=== PATIENT | male | born 1995 | race Hispanic/Latino ===

== ENCOUNTER 2021-08-17 16:35 | Emergency (ER) | payer OTHER ==
[~2021-08-17] VITALS: Ht 162.6 cm; Wt 77.6 kg
[2021-08-17] MEDS ORDERED: KETOROLAC 30 MG/ML 1ML VIAL IM ONE (17:25)
[2021-08-17] MEDS ORDERED: CYCLOBENZAPRINE 10MG TABLET PO ONE (17:25)
[2021-08-17] MEDS ORDERED: NAPR-837 PO (17:30)
[2021-08-17] MEDS ORDERED: CYCL-707 PO (17:31)
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
[2021-08-17 18:26] VITALS: BP 137/71
== END 2021-08-17 18:50 | disposition home or self-care (01) ==
LOC: M ED 16:35
DX: Z04.1 Encounter for examination and observation following transport accident (principal); S29.012A Strain of muscle and tendon of back wall of thorax, initial encounter; S16.1XXA Strain of muscle, fascia and tendon at neck level, initial encounter; V49.40XA Driver injured in collision with unspecified motor vehicles in traffic accident, initial encounter; Y92.89 Other specified places as the place of occurrence of the external cause; Y93.89 Activity, other specified; Y99.8 Other external cause status
CPT/HCPCS: 72125; 72128; 96372; 99283; J1885